=== PATIENT | female | born 1945 | race Caucasian/White ===

== ENCOUNTER 2016-09-03 09:14 | Emergency (ER) | payer MEDICARE ==
[~2016-09-03 09:14] MED LIST: ARICEPT5 MG PO; ATIVAN2 MG PO; BUSPIRONE HCL15 MG PO; JANUVIA50 MG PO; LOPRESSOR 25 MG25 MG PO; LYRICA75 MG PO; MULTIVITAMINS1 EAC1 PO; NORCO 7.5-3251 EACH PO; PLAVIX 75 MG TA75 MG PO; TYLENOL 325MG325 MG PO; VITAMIN D250000 UNIT PO; ZANTAC150 MG PO
== END 2016-09-03 12:15 | disposition home or self-care (01) ==
LOC: ER1 09:14
DX: S39.012A Strain of muscle, fascia and tendon of lower back, initial encounter (principal); N39.0 Urinary tract infection, site not specified; E11.40 Type 2 diabetes mellitus with diabetic neuropathy, unspecified; I34.1 Nonrheumatic mitral (valve) prolapse; Z79.84 Long term (current) use of oral hypoglycemic drugs; W18.11XA Fall from or off toilet without subsequent striking against object, initial encounter
CPT/HCPCS: 36415; 72070; 72100; 81001; 87077; 87086; 87186; 99283

== ENCOUNTER 2016-09-10 10:32 | Inpatient (IN) | payer MEDICARE ==
[~2016-09-10] VITALS: Ht 170.2 cm; Wt 65.8 kg
[2016-09-10 11:34] LABS: HEMOGLOBIN 10.3 gm/dl (12.3-15.3); RED BLOOD COUNT 3.35 M/UL (4.00-5.10); WHITE BLOOD COUNT 9.2 K/UL (4.5-11.0)
[2016-09-10 12:08] LABS: BUN/CREATININE RATIO 13 (0-10)
[2016-09-10] MEDS ORDERED: GLUCOPHAGE500 MG PO (17:04)
[2016-09-10] MEDS ORDERED: DITROPAN XL15 MG PO (17:04)
[2016-09-10] MEDS ORDERED: PREMARIN0.625 MG PO (17:05)
[2016-09-10] MEDS ORDERED: ELAVIL 50 MG TA50 MG PO (17:05)
[2016-09-10] MEDS ORDERED: EFFEXOR XR 75 M75 MG PO (17:06)
[2016-09-10] MEDS ORDERED: EFFEXOR XR75 MG PO (17:07)
[2016-09-10] MEDS ORDERED: KEFLEX500 MG PO (17:11)
[2016-09-10] MEDS ORDERED: MOBIC7.5 MG PO (17:12)
[2016-09-10] MEDS ORDERED: ASPIR-LOW81 MG PO (17:14)
[2016-09-11 04:51] LABS: WHITE BLOOD COUNT 7.9 K/UL (4.5-11.0)
[2016-09-11 04:59] LABS: RED BLOOD COUNT 2.97 M/UL (4.00-5.10)
[2016-09-11 05:38] LABS: BUN/CREATININE RATIO 12 (0-10)
[2016-09-11] MEDS ORDERED: KLONOPIN TAB 00.5 MG PO (11:45)
[2016-09-12] MEDS ORDERED: LEVAQUIN250 MG PO (10:40)
[2016-09-12] MEDS ORDERED: MIRALAX17 GM PO (10:45)
--- NOTE | 2016-09-12 12:27 | NUR ---
PATIENT HAS BEEN DENIED SERVICES OF [facility] AND THAT SHE WAS ON A "DO NOT ADMIT" LIST. DEPARTMENT STORE DOOR GREETER INFORMED MD AND DR. JASMINE ACKNOWLEDGED. I NOTIFIED PATIENT AND CAREGIVER OF THE ABOVE AND THAT I ASKED PHYSICAL THERAPIST TO SHOW CAREGIVER HOW TO DO HOME EXERCISES, IN WHICH PATIENT AND CAREGIVER AGREEABLE. INSTRUCTED PATIENT AND CAREGIVER TO CALL PCP AND MAKE APPT AND ASK PCP IF PATIENT STILL NEEDED HELP WITH EXERCISES TO GO TO THERAPY CLINIC AND BOTH AGREED AND VERB UNDERSTANDING.
--- NOTE | 2016-09-12 14:33 | NUR ---
PATIENT WAS AMBULATED IN THE HALLWAY USING WALKER AND TOLERATED WELL. PHYSICAL THERAPHY DEMONSTATED IT WITH THE CAREGIVER AND CAREGIVER VERB SHE WILL BE ABLE TO DO WITH NO DIFFICULTY FOR THEY HAVE BEEN DOING THE EXERCISES PRIOR TO PATIENT ADMISSION. PROVIDED FALL PRECAUTIONS, HOME SAFETY AND VERB UNDERSTANDING
== END 2016-09-12 14:33 | disposition home health service (06) | DRG 194 ==
LOC: ER1 10:32 → ZEROF 13:10 → MED SURG 4 15:58
PROVIDERS: Preventive Medicine Occupational Medicine; ADMIT Internal Medicine
DX: J18.9 Pneumonia, unspecified organism (principal); E87.2 Acidosis; E11.40 Type 2 diabetes mellitus with diabetic neuropathy, unspecified; G43.909 Migraine, unspecified, not intractable, without status migrainosus; F41.9 Anxiety disorder, unspecified; F32.9 Major depressive disorder, single episode, unspecified; E78.5 Hyperlipidemia, unspecified; F03.90 Unspecified dementia, unspecified severity, without behavioral disturbance, psychotic disturbance, mood disturbance, and anxiety; Z89.421 Acquired absence of other right toe(s); Z79.02 Long term (current) use of antithrombotics/antiplatelets; Z79.899 Other long term (current) drug therapy; I34.1 Nonrheumatic mitral (valve) prolapse; Z79.84 Long term (current) use of oral hypoglycemic drugs; K59.00 Constipation, unspecified
CPT/HCPCS: 36415; 36600; 71010; 71020; 73560; 80048; 80053; 81001; 82550; 82553; 82803; 82962; 83605; 83735; 83874; 83880; 84484; 85025; 87040; 93005; 94664; 96361; 96365; 96367; 97116; 97530; 97535; 99291; J0456; J0696; J2543; J7030; J7050

== ENCOUNTER → 2016-10-02 | Outpatient (CLI) | payer MEDICARE ==
[~2016-10-02] MED LIST changes: +ASPIR-LOW81 MG PO; +DITROPAN XL15 MG PO; +EFFEXOR XR 75 M75 MG PO; +EFFEXOR XR75 MG PO; +ELAVIL 50 MG TA50 MG PO; +GLUCOPHAGE500 MG PO; +KEFLEX500 MG PO; +KLONOPIN TAB 00.5 MG PO; +LEVAQUIN250 MG PO; +MIRALAX17 GM PO; +MOBIC7.5 MG PO; +PREMARIN0.625 MG PO
== END ==
LOC: EMI 08-19 17:15
DX: G81.94 Hemiplegia, unspecified affecting left nondominant side (principal)
CPT/HCPCS: 70551